=== PATIENT | male | born 1965 ===

== ENCOUNTER 2017-09-25 07:13 | Emergency (ER) | payer SELFPAY ==
[2017-09-25 07:37] VITALS: BP 134/94
--- NOTE | 2017-09-25 08:00 | UC ---
Laceration HPI - HPI Summary HPI Summary: WAS USING A SAW CUTTER TO CUT BLACKTOP THIS MORNING WHILE WORKING AT THE [employer]. LEFT INDEX FINGER GOT CAUGHT IN THE MACHINE AND PATIENT SUSTAINED A SUPERFICIAL LACERATION TO THE TIP OF HIS LEFT INDEX FINGER. REPORTS TDAP BOOSTED WITHIN THE PAST 1 YEAR. - History Of Current Complaint Stated Complaint: FINGER LAC Time Seen by Provider: 09/25/17 07:23 Hx Obtained From: Patient Laceration Location: Finger - LEFT INDEX Mechanism Of Injury: Sharp Trauma Onset/Duration: Lasting Minutes, Still Present Severity: Mild Pain Intensity: 2 Pain Scale Used: 0-10 Numeric Aggravating Factors: Other: - TOUCH - Allergies/Home Medications Allergies/Adverse Reactions: Allergies Allergy/AdvReac Type Severity Reaction Status Date / Time No Known Allergies Allergy Verified 09/25/17 07:27 Home Medications: Home Medications Atorvastatin* [Lipitor 10 MG*] 10 mg PO DAILY 09/25/17 [History Confirmed ] Febuxostat(NF) [Uloric(NF)] 40 mg PO 09/25/17 [History] Ibuprofen TAB* [Motrin TAB* 800 MG] 09/25/17 [History] Lisinopril TAB* [Prinivil TAB 10 MG*] 10 mg PO DAILY 09/25/17 [History Confirmed 09/25/17] PMH/Surg Hx/FS Hx/Imm Hx Cardiovascular History: Hypertension - Surgical History Surgical History: Yes Surgery Procedure, Year, and Place: RIGHT shoulder. bilat ing hernia repair - Family History Known Family History: Positive: Hypertension - Social History Alcohol Use: Occasionally Substance Use Type: None Smoking Status (MU): Never Smoked Tobacco - Immunization History Most Recent Tetanus Shot: utd per patient Review of Systems Constitutional: Negative Skin: Other - LACERATION LEFT INDEX FINGER Respiratory: Negative Cardiovascular: Negative Gastrointestinal: Negative All Other Systems Reviewed And Are Negative: Yes Physical Exam Triage Information Reviewed: Yes Appearance: Well-Appearing, No Pain Distress, Well-Nourished Vital Signs: Initial Vital Signs Temp 98.7 F 09/25/17 07:29 Pulse 65 09/25/17 07:29 Resp 16 09/25/17 07:29 BP 134/94 09/25/17 07:29 Pulse Ox 97 09/25/17 07:29 Vital Signs Reviewed: Yes Eyes: Positive: Conjunctiva Clear ENT: Positive: Hearing grossly normal Neck: Positive: Supple Respiratory: Positive: No respiratory distress, No accessory muscle use Cardiovascular: Positive: Pulses Normal Abdomen Description: Positive: Soft Musculoskeletal: Positive: ROM Intact, No Edema Neurological: Positive: Alert Psychological: Positive: Age Appropriate Behavior Skin: Positive: Other - 1.5CM CURVED LACERATION LEFT INDEX FINGER GOING THROUGH DISTAL PORTION OF NAIL. SKIN EDGES ALREADY WELL APPROXIMATED. NO ACTIVE BLEEDING. Laceration Repair - Laceration Repair 1 Description: Linear - CURVED Laceration Size After Repair: Length (cm) - 1.5CM, Width (mm) - 0MM, Depth (mm) - 1MM Modified For Repair: No Cleansing Completed Via Routine Prep: Yes Closure Material: Skin Adhesive, SteriStrips Laceration Course/Dx - Differential Dx - Laceration/Wound Provider Diagnoses: LACERATION REPAIR LEFT INDEX FINGER Discharge - Sign-Out/Discharge Documenting (check all that apply): Patient Departure - Discharge Plan Condition: Stable Disposition: HOME Patient Education Materials: Finger Laceration (ED) Referrals: Rod FRANKLIN,Jean Marie Cook [Medical Doctor] - If Needed Additional Instructions: KEEP DRESSINGS IN PLACE AND DRY UNTIL TOMORROW. SEEK FOLLOW-UP IF YOU DEVELOP SPREADING REDNESS OF THE SKIN, PURULENT DRAINAGE, FEVER, INCREASED PAIN OR ANY OTHER CONCERNING SYMPTOMS. THE STERISTRIPS WILL FALL OFF ON THEIR OWN IN THE NEXT 1-2 WEEKS. DO NOT PUT ANY OINTMENT ON TOP OF THEM. DO NOT SUBMERGE IN WATER FOR PROLONGED PERIOD OF TIME. OKAY FOR BRIEF SHOWER AND THEN BE SURE TO ALLOW TO DRY COMPLETELY. - Billing Disposition and Condition Condition: STABLE Disposition: Home
== END 2017-09-25 08:32 | disposition home or self-care (01) ==
LOC: UCEAST 07:13
DX: S61.211A Laceration without foreign body of left index finger without damage to nail, initial encounter (principal); I10 Essential (primary) hypertension; Z79.899 Other long term (current) drug therapy; W31.89XA Contact with other specified machinery, initial encounter; Y93.89 Activity, other specified; Y92.520 Airport as the place of occurrence of the external cause; Y99.0 Civilian activity done for income or pay
CPT/HCPCS: 99202; G0463